=== PATIENT | female | born 1940 | race Caucasian/White ===

== ENCOUNTER 2025-06-14 12:48 | Emergency (ER) | payer MEDICARE ==
--- NOTE | 2025-06-14 12:51 | ERPHSYRPT ---
- History of Present Illness Time Seen by Provider: 06/14/25 12:51 Source: patient, family Exam Limitations: no limitations Physician History: This is an 85-year-old white female patient brought to the emergency department by private vehicle accompanied by family and is a patient of nurse practitioner Madelinwith the concern of the family of possible TIAs in the last 36 hours. There are times when she "zones off" and is confused. The symptoms quickly resolved. Patient arrives without any symptoms of confusion. Patient wants to go home. She does agree to the workup. Patient has had frequent "accidents" of bowel and urinary incontinence. She has no headache. She has no chest pain. She has no abdominal pain. She is not short of breath. Patient has a history of diabetes, hyperlipidemia, hypertension, coronary disease (cardiac stent) and is on Plavix Timing/Duration: hour(s) (36 hours ago) Severity: mild Modifying Factors: Improves With: nothing Associated Symptoms: denies symptoms Allergies/Adverse Reactions: No Known Drug Allergies Allergy (Verified 03/20/15 10:03) Home Medications: Calcium Carbonate [Calcium] 600 mg PO DAILY 06/14/25 [History] Clopidogrel Bisulfate [Plavix] 75 mg PO DAILY 06/14/25 [History] Donepezil HCl [Aricept] 5 mg PO DAILY 06/14/25 [History] Ezetimibe 10 mg [Zetia 10 MG] 10 mg PO DAILY 06/14/25 [History] Metoprolol Succinate 50 mg [Toprol Xl 50 MG] 50 mg PO DAILY 06/14/25 [History] Potassium Chloride [Klor-Con 8] 8 meq PO DAILY 06/14/25 [History] Rosuvastatin Calcium 20 mg PO HS 06/14/25 [History] Tirzepatide [Mounjaro] 10 mg SQ WEEKLY 06/14/25 [History] Travel Risk - International Travel Have you traveled outside of the country in past 3 weeks: No - Emerging Infectious Disease Are you exhibiting symptoms associated with any current EIDs: No - Review of Systems Constitutional: No Symptoms Eyes: No Symptoms Ears, Nose, & Throat: No Symptoms Respiratory: No Symptoms Cardiac: No Symptoms Abdominal/Gastrointestinal: No Symptoms Genitourinary Symptoms: No Symptoms Musculoskeletal: No Symptoms Skin: No Symptoms Neurological: Other (Family concerned about confusion symptoms that are intermittent over the last 36 hours) Psychological: No Symptoms Endocrine: No Symptoms Hematologic/Lymphatic: No Symptoms Immunological/Allergic: No Symptoms All Other Systems: Reviewed and Negative - Past Medical History Pertinent Past Medical History: Yes Neurological History: No Pertinent History ENT History: Cataracts Cardiac History: Coronary Artery Disease, High Cholesterol, Hypertension Respiratory History: No Pertinent History Endocrine Medical History: Diabetes Type II Musculoskeletal History: No Pertinent History GI Medical History: No Pertinent History History: No Pertinent History Psycho-Social History: No Pertinent History Female Reproductive Disorders: No Pertinent History - Past Surgical History Past Surgical History: Yes Neuro Surgical History: No Pertinent History Cardiac: Cardiac Stent Respiratory: No Pertinent History Gastrointestinal: No Pertinent History Genitourinary: No Pertinent History Musculoskeletal: No Pertinent History Female Surgical History: No Pertinent History Other Surgical History: cataract surgery with lens implant. 3 heart stents - Social History Drug Use: none - Nursing Vital Signs Nursing Vital Signs: Initial Vital Signs Temperature 96.5 F 06/14/25 12:49 Respiratory Rate 22 06/14/25 12:49 Blood Pressure 175/87 06/14/25 12:49 O2 Sat by Pulse Oximetry 97 06/14/25 12:49 Pain Scale Pain Intensity 0 - Physical Exam General Appearance: no apparent distress, alert, anxiety, thin Eye Exam: PERRL/EOMI, eyes nml inspection Ears, Nose, Throat Exam: normal ENT inspection, moist mucous membranes Neck Exam: normal inspection, non-tender, supple, full range of motion Respiratory Exam: normal breath sounds, lungs clear, airway intact, No chest tenderness, No respiratory distress Cardiovascular Exam: regular rate/rhythm, normal heart sounds, normal peripheral pulses Gastrointestinal/Abdomen Exam: soft, normal bowel sounds, No tenderness Pelvic Exam: not done Rectal Exam: not done Back Exam: normal inspection, normal range of motion, CVA tenderness, No vertebral tenderness Extremity Exam: normal inspection, normal range of motion, pelvis stable Neurologic Exam: alert, oriented x 3, cooperative, experimental outboard motors mechanic II-XII nml as tested, confusion (Intermittent over the last 36 hours. Not confused now) Skin Exam: normal color, warm, dry Lymphatic Exam: No adenopathy SpO2 Interpretation: normal O2 Delivery: Room Air - Course Nursing assessment & vital signs reviewed: Yes Ordered Tests: Active Orders 24 hr Category Date Time Status Body And Frame Technician STAT Care 06/14/25 13:24 Active EKG-ER Only STAT Care 06/14/25 13:23 Completed NPO (ED) STAT Care 06/14/25 13:23 Active POCT Glucose Check STAT Care 06/14/25 13:23 Active Pulse Oximetry (ED) STAT Care 06/14/25 13:23 Active HEAD WITHOUT CONTRAST [CT] Stat Exams 06/14/25 13:24 Completed CBC W DIFF Stat Lab 06/14/25 13:20 Completed CMP Stat Lab 06/14/25 13:20 Completed POCT GLUCOSE Stat Lab 06/14/25 13:28 Completed PROTIME WITH INR Stat Lab 06/14/25 13:20 Completed UA W/RFX UR CULTURE Stat Lab 06/14/25 13:23 Completed Medication Summary Generic Name Dose Route Start Last Admin Trade Name Freq PRN Reason Stop Dose Admin Sodium Chloride 1,000 mls @ 100 mls/hr 06/14/25 13:30 06/14/25 13:40 Sodium Chloride 0.9% 1000 Ml IV 07/14/25 13:29 100 mls/hr .Q10H RAH Administration Lab/Rad Data: Laboratory Result Diagrams 06/14/25 13:20 06/14/25 13:20 Laboratory Results 06/14/25 06/14/25 06/14/25 Range/Units 13:28 13:23 13:20 WBC (3.98-10.04) x10^3/uL RBC (3.93-5.22) x10^6/uL Hgb (11.2-15.7) g/dL Hct (34.1-44.9) % MCV (79.4-94.8) fL MCH (25.6-32.2) pg MCHC (32.2-35.5) g/dL RDW (11.7-14.4) % Plt Count (182-369) x10^3/uL MPV (9.4-12.3) fL Gran % (34.0-71.1) % Immature Gran % (Auto) (0.001-0.429) % Nucleat RBC Rel Count (0.00-0.2) % Eos # (Auto) (0.04-0.36) x10^3/uL Immature Gran # (Auto) (0.001-0.031) x10^3u/L Absolute Lymphs (auto) (1.18-3.74) x10^3/uL Absolute Monos (auto) (0.24-0.86) x10^3/uL Absolute Nucleated RBC (0.00-0.012) x10^3u/L Lymphocytes % (19.3-51.7) % Monocytes % (4.7-12.5) % Eosinophils % (0.7-5.8) % Basophils % (0.1-1.2) % Absolute Granulocytes (1.56-6.13) x10^3/uL Basophils # (0.01-0.08) x10^3/uL PT 10.4 (9.4-12.5) SECONDS INR 0.93 (0.8-3.0) Sodium (135-145) mmol/L Potassium (3.5-5.1) mmol/L Chloride (98-107) mmol/L Carbon Dioxide (22-30) mmol/L Anion Gap (5-15) MEQ/L BUN (7-17) mg/dL Creatinine (0.52-1.04) mg/dL Estimated GFR ML/MIN Glucose (74-106) mg/dL POC Glucometer 98 (74 to 106) mg/dL Calcium (8.4-10.2) mg/dL Total Bilirubin (0.2-1.3) mg/dL AST (14-36) U/L ALT (0-35) U/L Alkaline Phosphatase (38-126) U/L Serum Total Protein (6.3-8.2) g/dL Albumin (3.5-5.0) g/dL Urine Color Yellow (Yellow) Urine Appearance Clear (Clear) Urine pH 5.0 (4.6-8.0) Ur Specific Murray >=1.030 A (1.005-1.030) Urine Protein Negative (Negative) Urine Glucose (UA) >=1000 A (Negative) mg/dL Urine Ketones >=160 A (Negative) Urine Blood Negative (Negative) Urine Nitrite Negative (Negative) Urine Bilirubin Negative (Negative) Urine Urobilinogen 0.2 (0.2) mg/dL Ur Leukocyte Esterase Negative (Negative) U Hyaline Cast (Auto) NONE SEEN (0-2) /LPF Urine Microscopic RBC 0-2 (0-5) /HPF Urine Microscopic WBC 0-2 (0-5) /HPF Ur Epithelial Cells None Seen (None Seen) /HPF Urine Bacteria None Seen (None Seen) /HPF Urine Culture Reflexed NO (NO) 06/14/25 06/14/25 Range/Units 13:20 13:20 WBC 10.1 H (3.98-10.04) x10^3/uL RBC 4.45 (3.93-5.22) x10^6/uL Hgb 11.0 L (11.2-15.7) g/dL Hct 37.5 (34.1-44.9) % MCV 84.3 (79.4-94.8) fL MCH 24.7 L (25.6-32.2) pg MCHC 29.3 L (32.2-35.5) g/dL RDW 16.9 H (11.7-14.4) % Plt Count 337 (182-369) x10^3/uL MPV 12.3 (9.4-12.3) fL Gran % 73.9 H (34.0-71.1) % Immature Gran % (Auto) 0.3 (0.001-0.429) % Nucleat RBC Rel Count 0.0 (0.00-0.2) % Eos # (Auto) 0.04 (0.04-0.36) x10^3/uL Immature Gran # (Auto) 0.03 (0.001-0.031) x10^3u/L Absolute Lymphs (auto) 1.84 (1.18-3.74) x10^3/uL Absolute Monos (auto) 0.67 (0.24-0.86) x10^3/uL Absolute Nucleated RBC 0.00 (0.00-0.012) x10^3u/L Lymphocytes % 18.3 L (19.3-51.7) % Monocytes % 6.7 (4.7-12.5) % Eosinophils % 0.4 L (0.7-5.8) % Basophils % 0.4 (0.1-1.2) % Absolute Granulocytes 7.44 H (1.56-6.13) x10^3/uL Basophils # 0.04 (0.01-0.08) x10^3/uL PT (9.4-12.5) SECONDS INR (0.8-3.0) Sodium 137 (135-145) mmol/L Potassium 4.0 (3.5-5.1) mmol/L Chloride 101 (98-107) mmol/L Carbon Dioxide 20 L (22-30) mmol/L Anion Gap 19.6 H (5-15) MEQ/L BUN 27 H (7-17) mg/dL Creatinine 0.88 (0.52-1.04) mg/dL Estimated GFR 63.6 ML/MIN Glucose 104 (74-106) mg/dL POC Glucometer (74 to 106) mg/dL Calcium 9.3 (8.4-10.2) mg/dL Total Bilirubin 0.80 (0.2-1.3) mg/dL AST 35 (14-36) U/L ALT 19 (0-35) U/L Alkaline Phosphatase 121 (38-126) U/L Serum Total Protein 8.4 H (6.3-8.2) g/dL Albumin 4.6 (3.5-5.0) g/dL Urine Color (Yellow) Urine Appearance (Clear) Urine pH (4.6-8.0) Ur Specific Murray (1.005-1.030) Urine Protein (Negative) Urine Glucose (UA) (Negative) mg/dL Urine Ketones (Negative) Urine Blood (Negative) Urine Nitrite (Negative) Urine Bilirubin (Negative) Urine Urobilinogen (0.2) mg/dL Ur Leukocyte Esterase (Negative) U Hyaline Cast (Auto) (0-2) /LPF Urine Microscopic RBC (0-5) /HPF Urine Microscopic WBC (0-5) /HPF Ur Epithelial Cells (None Seen) /HPF Urine Bacteria (None Seen) /HPF Urine Culture Reflexed (NO) - Progress Progress: improved, re-examined Progress Note: 06/14/25 13:36 My medical decision making and the assignment of moderate complexity of this patient's medical issue today is based on review of the patient's past medical history, reviewed the patient's medication list, review the patient drug allergy list, history of present illness and physical findings on examination. The workup in this patient includes placement of intravenous line, infusion of low rate crystalloid solution, CBC, CMP, urinalysis, twelve-lead EKG, CT scan of the head without contrast. Differential diagnosis includes but is not limited to urinary tract infection, dehydration, electrolyte abnormalities, TIA, CVA, age-related dementia 06/14/25 15:41 I interpreted the patient's laboratory data results. Based on laboratory data results, the patient appears to be dehydrated with elevated anion gap and significant ketones in her urine. No other significant findings in her laboratory workup. CT scan of the head without contrast was interpreted by the radiologist and I reviewed the impression. 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 (age- appropriate global atrophy) Counseled pt/family regarding: lab results, diagnosis, need for follow-up, rad results Medical Desision Making - Independent Historian Additional History obtained from: Family - Diagnostic Testing Radiological Interpretation: Reviewed by me, Teleradiologist Report - Risk of complications Low Risk: Low risk of morbidity from additional dx testing or treatment - Departure Departure Disposition: Home Clinical Impression: Dehydration, Confusion, hx of, without neuro findings Condition: Stable Critical Care Time: No Referrals: BETSY SUAREZ GLAZE GRINDER [Primary Care Provider, [facility]] - Follow up/PCP as directed Additional Instructions: Drink plenty of clear liquids at home before advancing diet. Take medication as prescribed. Call the patient's prescribing provider tomorrow, 06/15/2025, to make arrangements for follow-up appointment for further evaluation and management.
[2025-06-14 13:16] VITALS: TEMP 96.5
[2025-06-14 13:32] LABS: BASOPHIL % 0.4 % (0.1-1.2); Basophil (Absolute #) 0.04 x10^3/uL (0.01-0.08); Eosinophil (Absolute #) 0.04 x10^3/uL (0.04-0.36); Hematocrit 37.5 % (34.1-44.9); Hemoglobin 11.0 g/dL (11.2-15.7); IMMATURE GRAN # 0.03 x10^3u/L (0.001-0.031); IMMATURE GRAN % 0.3 % (0.001-0.429); Lymphocyte (Absolute #) 1.84 x10^3/uL (1.18-3.74); Mean Corpuscular Hemoglobin 24.7 pg (25.6-32.2); Mean Corpuscular Hgb Concent. 29.3 g/dL (32.2-35.5); Monocyte (Absolute #) 0.67 x10^3/uL (0.24-0.86); NUCLEATED RBC # 0.00 x10^3u/L (0.00-0.012); NUCLEATED RBC % 0.0 % (0.00-0.2); Platelet Count 337 x10^3/uL (182-369); Red Blood Count 4.45 x10^6/uL (3.93-5.22); White Blood Count 10.1 x10^3/uL (3.98-10.04)
[2025-06-14 13:44] LABS: Calcium 9.3 mg/dL (8.4-10.2); Carbon Dioxide 20.0 mmol/L (22-30); Creatinine 1 0.88 mg/dL (0.52-1.04); EST GLOMERULAR FILTRATION RATE 63.6 ML/MIN; Glucose 104.0 mg/dL (74-106); Potassium 4.0 mmol/L (3.5-5.1); SGOT/AST 35.0 U/L (14-36); SGPT/ALT 19.0 U/L (0-35); Total Protein 8.4 g/dL (6.3-8.2)
[2025-06-14 13:45] LABS: INR 0.93 (0.8-3.0); PROTIME 10.4 SECONDS (9.4-12.5)
--- NOTE | 2025-06-14 14:34 | XRAY ---
Indication: Confusion. Multiple contiguous axial images obtained through the head without contrast. Comparison: None Age-appropriate global atrophy and moderate periventricular degenerative microischemia bilaterally. No acute intracranial hemorrhage, abnormal extra-axial fluid collection, or mass effect. 4th ventricle is midline without hydrocephalus. Bony calvarium intact. Paranasal sinuses and mastoid air cells are clear. Impression: Nonacute senile brain.
[2025-06-14 15:30] LABS: Glucose, Urine >=1000 mg/dL (Negative); Protein,Urine Dip Negative (Negative); RBC 0-2 /HPF (0-5); WBC 0-2 /HPF (0-5)
[2025-06-14 16:13] VITALS: BP 120/49
[2025-06-14 16:16] VITALS: PULSE 75; RESP 22; O2SAT 97
== END 2025-06-14 17:02 | disposition home or self-care (01) ==
LOC: ED 12:48
DX: E86.0 Dehydration (principal); R41.0 Disorientation, unspecified; E11.9 Type 2 diabetes mellitus without complications; I10 Essential (primary) hypertension; Z79.02 Long term (current) use of antithrombotics/antiplatelets; Z79.85 Long-term (current) use of injectable non-insulin antidiabetic drugs; Z79.899 Other long term (current) drug therapy